=== PATIENT | male | born 1985 | race Caucasian/White ===

== ENCOUNTER 2020-12-27 08:45 | Emergency (ER) | payer OTHER ==
[2020-12-27] MEDS ORDERED: Lidocaine 1% (PF) 30 ML VIAL ONE (09:03)
[2020-12-27] MEDS ORDERED: Ondansetron ODT 4 MG TAB ONE (09:26)
== END 2020-12-27 09:30 ==
LOC: NAV ERS 08:45
DX: S01.511A Laceration without foreign body of lip, initial encounter (principal); W19.XXXA Unspecified fall, initial encounter
CPT/HCPCS: 12011; 36416; J2001; Q0162